=== PATIENT | female | born 1975 | race Caucasian/White ===

== ENCOUNTER 2017-10-13 03:58 | Emergency (ER) | payer BC, SELFPAY | END 2017-10-13 10:47 | disposition home or self-care (01) | PROVIDERS: Emergency Provider Emergency Medicine; Visit Provider Emergency Medicine | DX: T40.1X1A Poisoning by heroin, accidental (unintentional), initial encounter (principal); R41.82 Altered mental status, unspecified; D72.829 Elevated white blood cell count, unspecified | CPT/HCPCS: 71010; 74176; 80053; 80305; 80329; 81001; 82150; 83690; 85025; 93005; 96365; 96375; 99285; J2310; J2405 ==

== ENCOUNTER 2018-01-31 13:46 | Inpatient (IN) ==
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
[2018-01-31 15:00] LABS: Albumin Level 3.9 gm/dL (3.4-5.0); Albumin/Globulin Ratio 0.8 (1.1-1.8); Anion Gap 13.4 mEq/L (5-15); Bilirubin,Total 0.2 mg/dL (0.2-1.0); Calcium 9.8 mg/dL (8.5-10.1); Potassium 3.4 mmoL/L (3.5-5.1); Total Protein,Serum 8.9 gm/dL (6.4-8.2)
[2018-01-31 15:13] LABS: Eosinophils % 1.1 % (0.1-12.0); Hematocrit 44.4 % (37.0-47.0); Hemoglobin 15.1 g/dL (12.2-16.2); Mean Corpuscular HGB Conc 34.1 g/dL (31.8-35.4); Mean Corpuscular Hemoglobin 32.6 pg (27.0-31.2); Mean Corpuscular Volume 95.4 fl (81-99); Mean Platelet Volume 8.2 fl (7.4-10.4); Neutrophils % 75.5 % (37.0-80.0); Platelet Count 289 K/mm3 (142-424); Red Blood Count 4.65 M/mm3 (4.20-5.40); Red Cell Distribution Width 12.8 % (11.5-17.5); White Blood Count 12.7 K/mm3 (4.8-10.8)
[2018-01-31 15:14] LABS: Basophils # 0.1 K/mm3 (0-0.2); Basophils % 0.5 % (0.1-2.0); Eosinophils # 0.1 K/mm3 (0.0-0.4); Lymphocytes # 1.9 K/mm3 (0.7-4.5); Monocytes # 0.9 K/mm3 (0.1-1.0); Neutrophils # 9.6 K/mm3 (1.8-7.8)
--- NOTE | 2018-01-31 16:38 | Pharmacy Consult Notes ---
- Pharmacy Consult Date: 01/31/18 Time: 16:37 Referring provider: DR. DELACRUZ Reason for Consult:: VANCOMYCIN DOSING Allergies and ADEs:: Allergies Allergy/AdvReac Type Severity Reaction Status Date / Time No Known Allergies Allergy Unverified 10/13/17 04:03 Home Medications:: Home Medications Medication Instructions Recorded Confirmed Type ALPRAZolam [Alprazolam 2mg Tab] 2 mg PO BID PRN 01/31/18 01/31/18 History Tizanidine HCl [Zanaflex 4mg 4 mg PO Q4-6H PRN 01/31/18 01/31/18 History tablet] Height: 1.68 m Weight: 68.039 kg Laboratory Results:: NONE Assessment and Plan - Assessment and plan all Dx Assessment and Plan for all problems:: DOSED AT 1250 MG Q12H. PHARMACY WILL FOLLOW DAILY AND ADJUST APPROPRIATE. PAULA MATA, PHARMD
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
[2018-01-31 21:23] LABS: Amphetamine/Metha Screen,Urine Negative ng/mL (<1000); Barbiturates Screen,Urine Negative ng/mL (<200); Benzodiazepines Screen,Urine Positive ng/mL (200); Cannabinoid Screen,Urine Positive ng/mL (<50); Cocaine Screen,Urine Negative ng/g (<300); Methadone Screen,Urine Negative ng/mL (<300); Opiate Screen,Urine Positive ng/mL (<300); Phencyclidine Screen,Urine Negative ng/mL (<25)
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
--- NOTE | 2018-02-01 07:30 | Pharmacy Consult Notes ---
[facility] Pharmacy VTE Monitoring - Patient Demographics Admission date: 01/31/18 Report Date: 02/01/18 Time: 07:29 Allergies/Adverse Reactions: Patient Allergies No Known Allergies Allergy (Unverified 10/13/17 04:03) Height: 1.6 m Weight: 59.137 kg Patient Problems: Current Active Problems Abscess of antecubital fossa (Acute) Cellulitis of upper extremity (Acute) - VTE Risk Labs: VTE Related Lab Results Hgb 15.1 g/dL (12.2-16.2) 01/31/18 14:20 Hct 44.4 % (37.0-47.0) 01/31/18 14:20 Plt Count 289 K/mm3 (142-424) 01/31/18 14:20 BUN 13 mg/dL (7-18) 01/31/18 14:20 Creatinine 0.74 mg/dL (0.55-1.02) 01/31/18 14:20 Estimated Creat Clear 105 mL/min (0-300) 01/31/18 14:20 VTE Score: 1 VTE Risk Level: Very Low Risk - Prophylaxis VTE Prophylaxis Ordered?: Yes Types of VTE Prophylaxis: TEDS Knee High Location of Applied Device: Bilateral Lower Extremeties - VTE Diagnosis Confirmed Treatment or plan recommended: Continue Current Treatment
--- NOTE | 2018-02-01 07:52 | Progress Note ---
Internal Medicine - PN: Subj *Date: 02/01/18 *Time: 07:51 Interval history: Patient is pleasant, talkative, drinking clear liquids well. Surgery consult note reviewed and appreciated. Exam Vital signs and Labs for Last 24 Hours: Temp Pulse Resp BP Pulse Ox 99.1 F 80 18 122/85 997 H 02/01/18 07:49 02/01/18 07:49 02/01/18 07:49 02/01/18 07:49 02/01/18 07:49 Laboratory Results - last 24 hr 01/31/18 21:04: Urine Opiates Screen Positive H, Ur Barbituates Screen Negative , Ur Phencyclidine Scrn Negative, Ur Amphetamines Screen Negative, U Methamphetamines Scrn Negative, U Benzodiazepines Scrn Positive H, Urine Cocaine Screen Negative, U Marijuana (THC) Screen Positive H I & O for Last 24 hours: Intake & Output 01/29/18 01/30/18 01/31/18 02/01/18 11:59 11:59 11:59 11:59 Intake Total 1050 / 1050 Output Total 650 / 650 Balance 400 / 400 Weight 130 lb 6 oz Narrative: Patient's right arm is bandaged, distally the wrist is less tender, better range of motion. There is some redness that is new proximal to the bandage. Otherwise exam unchanged. Assessment and Plan (1) Abscess of antecubital fossa Current visit: Yes Status: Acute Category: Medical Code(s): L02.419 - Cutaneous abscess of limb, unspecified (2) Cellulitis of upper extremity Current visit: Yes Status: Acute Qualifiers: Laterality: right Qualified Code(s): L03.113 - Cellulitis of right upper limb Category: Medical Code(s): L03.119 - Cellulitis of unspecified part of limb - Assessment and plan all Dx Assessment and Plan for all problems:: Surgical note reviewed. Agree with further intervention later if wound does not make much progress. Continue vancomycin. No evidence of withdrawal at this point.
--- NOTE | 2018-02-01 13:02 | Progress Note ---
[facility] Anesthesia Checklist - Patient Identification Patient Identification: Arm Band, Verbal (Name & ) - Structural Data Admitted From: Inpatient Planned Operative Procedure/s: i and d right ac Consent for Planned Operative Procedure(s) Verified: Yes Verified Documents: Surgical Consent, History and Physical - NPO Status Verified Time NPO: 12:00 - Additional verifications Patient : No Anesthesia Reactions: No Hx Blood Transfusions: No Blood Transfusion Reaction: No Cephalosporin Allergy: No Previous Colonoscopy: No - Cardiovascular Assessment Heart Sounds: S1 & S2 Pulse Strength: Baseline Pulse Rhythm: Regular Peripheral Edema: No - Airway Assessment C-Spine Mobility Assessed: Yes TMJ Mobility Assessed: Yes Dentition: Good Dentition - Neurological Assessment Level of Consciousness: Awake, Alert, Appropriate Hx Seizures: No Numbness or tingling in extremities: No - Anesthesia Plan Anesthesia Risk discussed: Yes Anesthesia Plan: Verified ASA Class: II Anesthesia Type: General [facility] Anesthesia HX I have reviewed the patient's past medical history: Yes Medical History: Reports:: Anxiety Denies:: Cancer, Diabetes Mellitus Type 1, Diabetes Mellitus Type 2, MRSA Other Medical History: Reports: Anemia, Arthritis, Fibromyalgia Other Surgeries: Yes: Appendectomy, Cholecystectomy, Hysterectomy-Total, Other ( coccyx removed r/t being shattered) Amputation: No Fractures: Yes (left ankle, coccyx) *Family Hx:: Adopted
--- NOTE | 2018-02-01 16:21 | Progress Note ---
[facility] Anesthesia Record Part I Intake, IV Amount: 1,200 Estimated blood loss (mL): 0 Urine output (mL): 0 Blood Pressure: 146/82 SaO2: 99 Pulse Rate: 77 Respiratory Rate: 12 Temperature: 97.3 F Patient is:: Stable Stable to PACU at:: 16:20
--- NOTE | 2018-02-01 16:22 | Progress Note ---
[facility] Anesthesia Record Part II Discharge Time: 16:50 Destination: floor PACU nurse assessment reviewed?: Yes Patient Condition:: Good Anesthesia Complications:: None
--- NOTE | 2018-02-01 16:24 | Operative Note ---
Date of procedure: 02/01/18 Pre-op Diagnosis:: Right antecubital fossa abscess Post-op Diagnosis:: Same Procedure performed:: Incision and drainage of right antecubital fossa abscess with debridement of necrotic tissue Surgeon:: Jona Camacho MD PROSPECTING OBSERVER:: Jose Campbell Anesthesia: LMA Estimated blood loss (mL): 20 Operative findings:: Deep abscess with necrotic tissue to the fascial margin with tracking proximally and distally. Operative note:: After informed consent was obtained, the patient was taken to the operating room and maintained in the supine position. General anesthesia with laryngeal mask airway was achieved. The patient's right arm was prepped and draped in a sterile fashion. An elliptical incision was made around the central portion of the abscess. The deeper tissue was carefully evaluated and found to be necrotic. Necrotic tissue was debrided to the fascial margin. The fascia appeared to be healthy. Tracking proximally and distally was noted. Electrocautery was utilized to achieve hemostasis. Fluid was obtained for Gram stain and culture. The wound was packed open with moistened Kerlix that was then infiltrated with 1% lidocaine. Dressings were applied and the patient was transferred to recovery in stable condition after removal of her laryngeal mask airway. Condition: stable Disposition: PACU Specimens:: Fluid for Gram stain and culture Complications:: No immediate
--- NOTE | 2018-02-02 06:22 | Progress Note ---
Subjective Patient reports: no new complaints Exam Vital signs and Labs for Last 24 Hours: Temp Pulse Resp BP Pulse Ox 98.2 F 65 20 115/82 98 02/02/18 04:00 02/02/18 04:00 02/02/18 04:00 02/02/18 04:00 02/02/18 04:00 Laboratory Results - last 24 hr 02/01/18 13:45: Urine HCG, Qual Negative I & O for Last 24 hours: Intake & Output 01/30/18 01/31/18 02/01/18 02/02/18 11:59 11:59 11:59 11:59 Intake Total 1050 / 1050 2690 / 2690 Output Total 650 / 650 900 / 900 Balance 400 / 400 1790 / 1790 Weight 130 lb 6 oz - Constitutional no acute distress - *Routine Cardiovascular Exam Present: RRR - *Routine Skin Exam Comments: dressing intact. no spreading erythema. Progress Note: A&P (1) Abscess of antecubital fossa Status: Acute Assessment and plan: Complex deep abscess with proximal and distal extension and necrotic tissue. Dressing changes twice daily Continue antibiotics Likely discharge home within 24-48 hours with p.o. antibiotics and outpatient dressing changes Current Visit: Yes (2) Cellulitis of upper extremity Status: Acute Current Visit: Yes
--- NOTE | 2018-02-02 08:39 | Progress Note ---
Internal Medicine - PN: Subj *Date: 02/02/18 *Time: 08:38 Interval history: Patient overall feels well, vital signs have been normal. Has some complaints of pain that occurs every 5 hours and wonders about increasing the frequency of her [place]. Also concerned about a small spot proximal to the abscess location on the lateral aspect of the right arm. Exam Vital signs and Labs for Last 24 Hours: Temp Pulse Resp BP Pulse Ox 98.0 F 73 16 115/56 99 02/02/18 08:00 02/02/18 08:00 02/02/18 08:00 02/02/18 08:00 02/02/18 08:00 Laboratory Results - last 24 hr 02/01/18 13:45: Urine HCG, Qual Negative 02/02/18 07:39: Vancomycin Trough 13.1 I & O for Last 24 hours: Intake & Output 01/30/18 01/31/18 02/01/18 02/02/18 11:59 11:59 11:59 11:59 Intake Total 1050 / 1050 2690 / 2690 Output Total 650 / 650 900 / 900 Balance 400 / 400 1790 / 1790 Weight 130 lb 6 oz Narrative: Cardiopulmonary assessment unremarkable. Alert, oriented 3. There is a small, indurated, mobile, rubbery mass of approximately 2 cm in the right lateral upper arm consistent with more of a lipoma rather than a fluctuant abscess. Her dressing is clean/dry/intact. Distal pulses good, good family practice md strength. Assessment and Plan (1) Abscess of antecubital fossa Current visit: Yes Status: Acute Category: Medical Code(s): L02.419 - Cutaneous abscess of limb, unspecified (2) Cellulitis of upper extremity Current visit: Yes Status: Acute Qualifiers: Laterality: right Qualified Code(s): L03.113 - Cellulitis of right upper limb Category: Medical Code(s): L03.119 - Cellulitis of unspecified part of limb - Assessment and plan all Dx Assessment and Plan for all problems:: Agree with current surgical plan. Continue dressing changes. Change pain medicine as ordered.
--- NOTE | 2018-02-02 15:50 | Pharmacy Consult Notes ---
- Pharmacy Consult Date: 02/02/18 Time: 09:00 Referring provider: LORNA Reason for Consult:: VANCOMYCIN MONITORING Allergies and ADEs:: Allergies Allergy/AdvReac Type Severity Reaction Status Date / Time No Known Allergies Allergy Unverified 10/13/17 04:03 Home Medications:: Home Medications Medication Instructions Recorded Confirmed Type ALPRAZolam [Alprazolam 2mg Tab] 2 mg PO BID PRN 01/31/18 01/31/18 History Tizanidine HCl [Zanaflex 4mg 4 mg PO Q4-6H PRN 01/31/18 01/31/18 History tablet] Duloxetine HCl [Cymbalta] 30 mg PO DAILY 02/01/18 02/01/18 History Ibuprofen [Ibuprofen 800mg Tab] 800 mg PO Q8HP PRN 02/01/18 02/01/18 History Height: 1.6 m Weight: 59.137 kg Laboratory Results:: Laboratory Results - last 24 hr 02/02/18 07:39: Vancomycin Trough 13.1 Medical History: Reports:: Anxiety Denies:: Cancer, Diabetes Mellitus Type 1, Diabetes Mellitus Type 2, MRSA, Seizures Assessment and Plan (1) Abscess of antecubital fossa Current visit: Yes Status: Acute Category: Medical Code(s): L02.419 - Cutaneous abscess of limb, unspecified (2) Cellulitis of upper extremity Current visit: Yes Status: Acute Qualifiers: Laterality: right Qualified Code(s): L03.113 - Cellulitis of right upper limb Category: Medical Code(s): L03.119 - Cellulitis of unspecified part of limb - Assessment and plan all Dx Assessment and Plan for all problems:: CONTINUE VANCOMYCIN @1250MG EVERY 12 HOURS
[2018-02-03 06:52] LABS: Basophils # 0.1 K/mm3 (0-0.2); Eosinophils # 0.4 K/mm3 (0.0-0.4); Eosinophils % 6.4 % (0.1-12.0); Hematocrit 39.2 % (37.0-47.0); Hemoglobin 12.8 g/dL (12.2-16.2); Lymphocytes # 2.5 K/mm3 (0.7-4.5); Lymphocytes % 35.6 K/mm3 (10-50); Mean Corpuscular HGB Conc 32.6 g/dL (31.8-35.4); Mean Corpuscular Hemoglobin 31.4 pg (27.0-31.2); Mean Corpuscular Volume 96.5 fl (81-99); Monocytes # 0.6 K/mm3 (0.1-1.0); Monocytes % 8.8 % (1.7-9.3); Neutrophils # 3.4 K/mm3 (1.8-7.8); Neutrophils % 48.2 % (37.0-80.0); Platelet Count 230 K/mm3 (142-424); Red Blood Count 4.06 M/mm3 (4.20-5.40); Red Cell Distribution Width 12.6 % (11.5-17.5)
[2018-02-03 07:00] LABS: Anion Gap 10.1 mEq/L (5-15); Potassium 4.1 mmoL/L (3.5-5.1)
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
[2018-02-03 08:24] VITALS: BP 115/79
--- NOTE | 2018-02-03 09:05 | Progress Note ---
Subjective Patient reports: feels better Exam Vital signs and Labs for Last 24 Hours: Temp Pulse Resp BP Pulse Ox 98.1 F 69 18 115/79 97 02/03/18 08:00 02/03/18 08:00 02/03/18 08:00 02/03/18 08:00 02/03/18 08:00 Laboratory Results - last 24 hr 02/03/18 06:26: WBC 7.0 D, RBC 4.06 L, Hgb 12.8, Hct 39.2, MCV 96.5, MCH 31.4 H , MCHC 32.6, RDW 12.6, Plt Count 230, MPV 8.0, Neut % (Auto) 48.2, Lymph % (Auto ) 35.6, [place] % (Auto) 8.8, Eos % (Auto) 6.4, Baso % (Auto) 1.0, Neut # (Auto) 3.4, Lymph # (Auto) 2.5, [place] # (Auto) 0.6, Eos # (Auto) 0.4, Baso # (Auto) 0.1 02/03/18 06:26: Sodium 139, Potassium 4.1 D, Chloride 104, Carbon Dioxide 29, Anion Gap 10.1, BUN 18 D, Creatinine 0.59 D, Estimated Creat Clear 115, Estimated GFR 111, Est GFR ( Amer) 135 D, Glucose 84 I & O for Last 24 hours: Intake & Output 01/31/18 02/01/18 02/02/18 02/03/18 11:59 11:59 11:59 11:59 Intake Total 1050 / 1050 2690 / 2690 240 / 240 Output Total 650 / 650 900 / 900 1100 / 1100 Balance 400 / 400 1790 / 1790 -860 / -860 Weight 130 lb 6 oz 130 lb 6 oz Microbiology Reports for the Last 24 Hours: Microbiology 02/01/18 15:50 Arm,Right Gram Stain - Final 02/01/18 15:50 Arm,Right Abscess Culture - Preliminary NO GROWTH AFTER 24 HOURS - *Routine Skin Exam Comments: Wound inspected. Clean wound. No evidence of any necrosis, cellulitis. Progress Note: A&P (1) Abscess of antecubital fossa Status: Acute Assessment and plan: Patient is being discharged home today on outpatient dressing changes and oral antibiotics. Current Visit: Yes (2) Cellulitis of upper extremity Status: Acute Current Visit: Yes
== END 2018-02-03 11:50 | disposition home or self-care (01) ==
LOC: 2ND 13:46 → ER 13:46 → OBSVTOIN 16:33 → 2ND 16:34
PROVIDERS: ADMIT Internal Medicine Adolescent Medicine; ATTEND Internal Medicine Adolescent Medicine